=== PATIENT | male | born 1970 | race Caucasian/White ===

== ENCOUNTER 2016-06-09 03:48 | Inpatient (IN) | payer OTHER ==
[~2016-06-09] VITALS: Ht 157.5 cm; Wt 84.8 kg
[2016-06-09 04:15] LABS: HEMOGLOBIN 17.8 gm/dl (14.0-17.5); RED BLOOD COUNT 6.01 M/UL (4.20-5.50); WHITE BLOOD COUNT 12.7 K/UL (4.5-11.0)
[2016-06-09] MEDS ORDERED: CRESTOR40 MG PO (11:38)
[2016-06-09] MEDS ORDERED: BRILINTA90 MG PO (11:39)
[2016-06-09] MEDS ORDERED: BUMEX 1MG TABLET1 MG PO (11:39)
[2016-06-09] MEDS ORDERED: COREG 12.5MG12.5 MG PO (11:39)
[2016-06-09] MEDS ORDERED: CREON DR 6,0001 EACH PO (11:40)
[2016-06-09] MEDS ORDERED: GABAPENTIN800 MG PO (11:40)
[2016-06-09] MEDS ORDERED: GLUCAGEN1 MG INJ (11:41)
[2016-06-09] MEDS ORDERED: HUMALOG100 UNIT/1 SQ (11:42)
[2016-06-09] MEDS ORDERED: ISOSORBIDE MONO30 MG PO (11:42)
[2016-06-09] MEDS ORDERED: NITROSTAT0.4 MG SL (11:43)
[2016-06-09] MEDS ORDERED: LANTUS100 UNIT/1 SQ (11:43)
[2016-06-09] MEDS ORDERED: TRAMADOL HCL50 MG PO (11:43)
[2016-06-09] MEDS ORDERED: VITAMIN B COMP1 EACH PO (11:44)
[2016-06-09] MEDS ORDERED: DIOVAN40 MG PO (11:44)
[2016-06-09] MEDS ORDERED: CORLANOR (11:46)
[2016-06-10 07:31] LABS: WHITE BLOOD COUNT 10.9 K/UL (4.5-11.0)
[2016-06-10 07:40] LABS: HEMOGLOBIN 14.5 gm/dl (14.0-17.5); RED BLOOD COUNT 4.95 M/UL (4.20-5.50)
[2016-06-10] MEDS ORDERED: ASPIRIN EC81 MG PO (10:08)
== END 2016-06-10 10:48 | disposition home or self-care (01) | DRG 281 ==
LOC: ER1 03:48 → ZEROF 06:17 → CCU 09:48
PROVIDERS: Emergency Medicine; ADMIT Internal Medicine
DX: I21.4 Non-ST elevation (NSTEMI) myocardial infarction (principal); I13.0 Hypertensive heart and chronic kidney disease with heart failure and stage 1 through stage 4 chronic kidney disease, or unspecified chronic kidney disease; I50.22 Chronic systolic (congestive) heart failure; K86.1 Other chronic pancreatitis; I25.810 Atherosclerosis of coronary artery bypass graft(s) without angina pectoris; T82.855A Stenosis of coronary artery stent, initial encounter; N18.3 Chronic kidney disease, stage 3 (moderate); I25.10 Atherosclerotic heart disease of native coronary artery without angina pectoris; I25.5 Ischemic cardiomyopathy; E11.40 Type 2 diabetes mellitus with diabetic neuropathy, unspecified; Y71.1 Therapeutic (nonsurgical) and rehabilitative cardiovascular devices associated with adverse incidents; E78.5 Hyperlipidemia, unspecified; E66.9 Obesity, unspecified; I25.2 Old myocardial infarction; Z95.810 Presence of automatic (implantable) cardiac defibrillator; Z91.19 Patient's noncompliance with other medical treatment and regimen; Z68.34 Body mass index [BMI] 34.0-34.9, adult; Z79.4 Long term (current) use of insulin; Z79.84 Long term (current) use of oral hypoglycemic drugs; Z79.899 Other long term (current) drug therapy; Z90.49 Acquired absence of other specified parts of digestive tract; Z98.49 Cataract extraction status, unspecified eye; Z98.890 Other specified postprocedural states; Z82.49 Family history of ischemic heart disease and other diseases of the circulatory system; Z80.9 Family history of malignant neoplasm, unspecified
CPT/HCPCS: ECHO; 36415; 36600; 71010; 80048; 80061; 82550; 82553; 82803; 82962; 83880; 84484; 85025; 85027; 85610; 85730; 93005; 93306; 94664; 96374; 96375; 96376; 99291; J1644; J1940; J2270; J2405

== ENCOUNTER 2016-07-23 12:52 | Emergency (ER) | payer OTHER ==
[~2016-07-23 12:52] MED LIST: ASPIRIN EC81 MG PO; BRILINTA90 MG PO; BUMEX 1MG TABLET1 MG PO; COREG 12.5MG12.5 MG PO; CORLANOR; CREON DR 6,0001 EACH PO; CRESTOR40 MG PO; DIOVAN40 MG PO; GABAPENTIN800 MG PO; GLUCAGEN1 MG INJ; HUMALOG100 UNIT/1 SQ; ISOSORBIDE MONO30 MG PO; LANTUS100 UNIT/1 SQ; NITROSTAT0.4 MG SL; TRAMADOL HCL50 MG PO; VITAMIN B COMP1 EACH PO
[2016-07-23 14:57] LABS: HEMOGLOBIN 14.7 gm/dl (14.0-17.5); RED BLOOD COUNT 4.99 M/UL (4.20-5.50); WHITE BLOOD COUNT 10.4 K/UL (4.5-11.0)
== END 2016-07-23 16:30 | disposition home or self-care (01) ==
LOC: ER1 12:52
PROVIDERS: Preventive Medicine Occupational Medicine
DX: I50.9 Heart failure, unspecified (principal); Z90.49 Acquired absence of other specified parts of digestive tract; Z95.1 Presence of aortocoronary bypass graft; Z79.4 Long term (current) use of insulin; Z79.899 Other long term (current) drug therapy
CPT/HCPCS: 36415; 71010; 80053; 81001; 82150; 82550; 82553; 83690; 83874; 83880; 84484; 85025; 93005; 94664; 96374; 96375; 99285; J2405; J7030